=== PATIENT | male | born 1995 | race Hispanic/Latino ===

== ENCOUNTER 2020-07-06 18:50 | Emergency (ER) | payer OTHER ==
[~2020-07-06] VITALS: Ht 182.9 cm; Wt 105.0 kg
[2020-07-06] MEDS ORDERED: IBUPROFEN 800 MG TAB PO ONE ×2 (19:15→22:15)
[2020-07-06] MEDS ORDERED: ACETAMINOPHEN 325 MG TAB PO ONE (19:15)
[2020-07-06] MEDS ORDERED: NS 1,000 ML IV ONE (20:10)
[2020-07-06 20:52] LABS: BASO % 0.2 % (0.0-1.0); EOS % 0.1 % (0.0-3.0); HEMATOCRIT 46.7 % (42.0-52.0); HEMOGLOBIN 15.9 g/dl (13.5-17.5); LYMPH % 7.2 % (24.0-44.0); MEAN CORPUSCULAR HEMOGLOBIN 30.1 pg (27.0-33.0); MEAN CORPUSCULAR VOLUME 88.3 fl (80.0-96.0); MONO # 0.9 10^3/uL (0.0-0.8); MONO % 6.3 % (2.0-8.0); NEUTROPHILS # 11.9 10^3/uL (1.5-8.5); NEUTROPHILS % 85.8 % (36.0-66.0); PLATELET COUNT, AUTOMATED 145 10^3/uL (150-450); RED BLOOD COUNT 5.29 10^6/uL (4.30-6.10); WHITE BLOOD COUNT 13.9 10^3/uL (4.0-10.0)
[2020-07-06 21:20] LABS: ERYTHROCYTE SEDIMENTATION RATE 2 mm/hr (0-15)
[2020-07-06 21:29] LABS: RSV AMPLIFICATION NEGATIVE (NEGATIVE)
[2020-07-06] MEDS ORDERED: ACETAMINOPHEN 500 MG TAB PO ONE (22:15)
[2020-07-06] MEDS ORDERED: AMOXICILLIN 500 MG CAP PO ONE (22:15)
[2020-07-06] MEDS ORDERED: MAGICMW SSP (22:19)
[2020-07-06] MEDS ORDERED: AMOX500C PO (22:19)
[2020-07-06] MEDS ORDERED: IBUP80TA PO (22:19)
[2020-07-06] MEDS ORDERED: ACET-683 PO (22:19)
[2020-07-06 22:33] VITALS: BP 128/59
== END 2020-07-06 22:37 | disposition home or self-care (01) ==
LOC: M ED 18:50
DX: J02.0 Streptococcal pharyngitis (principal)